=== PATIENT | female | born 1980 | race Caucasian/White ===

== ENCOUNTER 2020-04-10 05:25 | Emergency (ER) | payer SELFPAY ==
[2020-04-10] MEDS ORDERED: Lidocaine 1% 20 ML MDV ONE (06:04)
--- NOTE | 2020-04-10 08:28 | RAD ---
TWO VIEWS RIGHT FOREARM: INDICATION: Dog bite. COMPARISON: None. FINDINGS: There is soft tissue laceration along the radial aspect of the proximal and mid right forearm. No ra diopaque foreign body is evident. No acute osseous abnormality is noted. IMPRESSION: Soft tissue injury to the right forearm. No acute osseous abnormality. POS: BH
== END 2020-04-10 07:00 | disposition left against medical advice (07) ==
LOC: MADERS 05:25
DX: S51.851A Open bite of right forearm, initial encounter (principal); K21.9 Gastro-esophageal reflux disease without esophagitis; E66.9 Obesity, unspecified; F31.9 Bipolar disorder, unspecified; F17.210 Nicotine dependence, cigarettes, uncomplicated; W54.0XXA Bitten by dog, initial encounter

== ENCOUNTER 2020-07-05 13:58 | Emergency (ER) | payer OTHER, SELFPAY ==
--- NOTE | 2020-07-05 15:50 | RAD ---
PORTABLE CHEST: COMPARISON: 05/14/2016 exam. HISTORY: Weakness, syncope. FINDINGS: Heart size is within normal limits. A vague area of nodular parenchymal density seen in right mid su[place] ve[place], probably coalescence of markings. Given patient's age, this would be unlikely to represen t a pulmonary nodule in a patient of this age group. It is possible that this represents some early infiltrative change. Clinical correlation is recommended. IMPRESSION: Slightly increased nodular density in the right mid lung. It believe it is most likely just a coales cence of markings does not have a typical appearance of an infiltrate or pulmonary nodule. Followup chest film would be suggested for assessment in 2 weeks. POS: LAN
[2020-07-06 16:50] LABS: SARS-CoV-2 MS2 Positive; SARS-CoV-2 N Gene Negative; SARS-CoV-2 S Gene Negative; SARS-CoV-2 by NAA Not Detected (NotDetected); SARS-CoV-2 orf1ab Negative
== END 2020-07-05 16:35 | disposition home or self-care (01) ==
LOC: MADERS 13:58
DX: J02.9 Acute pharyngitis, unspecified (principal); Z20.828 Contact with and (suspected) exposure to other viral communicable diseases; K21.9 Gastro-esophageal reflux disease without esophagitis; E66.9 Obesity, unspecified; F17.210 Nicotine dependence, cigarettes, uncomplicated
CPT/HCPCS: 71045; 87081; 87430; 87635; 87804; U0003

== ENCOUNTER 2021-05-19 21:19 | Emergency (ER) | payer SELFPAY ==
[2021-05-19] MEDS ORDERED: Ibuprofen 800 MG TAB ONE (21:46)
[2021-05-21 14:14] LABS: SARS-CoV-2 PCR by NAA DETECTED (NotDetected)
== END 2021-05-19 21:58 | disposition home or self-care (01) ==
LOC: MADERS 21:19
DX: U07.1 COVID-19 (principal); K21.9 Gastro-esophageal reflux disease without esophagitis; E66.9 Obesity, unspecified; F17.210 Nicotine dependence, cigarettes, uncomplicated
CPT/HCPCS: 99284; U0003; U0005

== ENCOUNTER 2023-08-27 15:22 | Emergency (ER) | payer SELFPAY ==
[2023-08-27] MEDS ORDERED: Ketorolac Tromethamine 30 MG/ML VIAL ONE (18:38)
== END 2023-08-27 18:53 | disposition home or self-care (01) ==
LOC: MADERS 15:22
DX: S76.912A Strain of unspecified muscles, fascia and tendons at thigh level, left thigh, initial encounter (principal); F17.210 Nicotine dependence, cigarettes, uncomplicated; X50.0XXA Overexertion from strenuous movement or load, initial encounter
CPT/HCPCS: 96372; 99283; J1885

== ENCOUNTER 2024-10-21 07:20 | Emergency (ER) | payer BC, OTHER ==
[2024-10-21] MEDS ORDERED: Lorazepam 2 MG/ML VIAL ONE (08:08)
[2024-10-21 08:34] LABS: Hematocrit 39.7 % (36.0-47.0); Hemoglobin 12.7 g/dL (12.0-16.0); Mean Corpuscular HGB CONC 31.9 g/dL (32.0-36.0); Mean Corpuscular Hemoglobin 26.3 pg (27.0-31.0); Mean Corpuscular Volume 82.5 fl (78.0-98.0); Mean Platelet Volume 7.7 fL (7.4-10.4); Platelet Count 351 10x3/uL (130-400); RBC Distribution Width 12.5 % (11.5-14.5); Red Blood Cell (RBC) Count 4.82 mill/uL (4.20-5.40); White Blood Cell (WBC) Count 8.3 10x3/uL (4.8-10.8)
[2024-10-21] MEDS ORDERED: Activated Charcoal (AQUA) 25 GM/120 ML TUBE ONE (08:40)
[2024-10-21 08:41] LABS: Band 2 % (5-11); Lymphocytes 20 % (21-51); MDiff Complete? YES; Manual Diff?? YES; Monocytes 4 % (0-10); Neutrophil 74 % (42-75); Platelet Adequacy Comment Appears Adequate; RBC Morph Comment Within Normal Limits
[2024-10-21 08:43] LABS: ALT (SGPT) 19 U/L (Less than 34); AST (SGOT) 22 U/L (11-34); Albumin 3.8 g/dL (3.1-4.5); Alkaline Phosphatase 84 U/L (40-110); Anion Gap 15 mmol/L (10-20); BHCG - Serum Negative (NEGATIVE); BUN (Urea Nitrogen) 17 mg/dL (7.0-18.7); Bilirubin, Total 0.9 mg/dL (0.3-1.2); Calc. Creatinine Clearance 0 mL/min (70-130); Carbon Dioxide 19 mmol/L (22-29); Chloride 107 mmol/L (98-107); Estimated GFR 111; Globulin 3.3 g/dL (2.4-3.5); Glucose 89 mg/dL (70-105); Potassium 4.4 mmol/L (3.5-5.1); Pregs Control Background? CLEAR/WHITE (CLR/WHITE); Pregs Control Bar Appear? YES (CONTROL BAR); Protein, Total 7.1 g/dL (6.0-8.3); Sodium 137 mmol/L (136-145); Troponin I Less than 0.010 ng/mL (< 0.028)
[2024-10-21 11:26] LABS: Amphetamine Detected (NotDetected); Barbiturates Screen Not Detected (NotDetected); Benzodiazepine Screen Detected (NotDetected); Cocaine Metabolite Screen Not Detected (NotDetected); Methadone Not Detected (NotDetected); Methamphetamine Detected (NotDetected); Opiate Screen Not Detected (NotDetected); Oxycodone Screen Not Detected (NotDetected); Phencyclidine (PCP) Not Detected (NotDetected); THC/Cannabinoid Screen Detected (NotDetected); Tricyclic Screen Not Detected (NotDetected)
== END 2024-10-21 11:15 | disposition left against medical advice (07) ==
LOC: MADERS 07:20
DX: T43.651A Poisoning by methamphetamines accidental (unintentional), initial encounter (principal); R00.0 Tachycardia, unspecified; F17.210 Nicotine dependence, cigarettes, uncomplicated
CPT/HCPCS: 36415; 74176; 80053; 80306; 83605; 84484; 84703; 85025; 96374; J2060